=== PATIENT | female | born 1955 | race American Indian/Alaskan Native ===

== ENCOUNTER 2020-10-09 09:31 | Outpatient (CLI) | payer MEDICARE ==
--- NOTE | 2020-10-09 10:44 | Mammography Report ---
RIGHT DIGITAL DIAGNOSTIC MAMMOGRAM WITH CAD CONVENTIONAL, 10/09/2020 RIGHT LIMITED BREAST ULTRASOUND CLINICAL INFORMATION / INDICATION: DIFFUSE CYSTIC MASTOPATHY OF RT BREAST TECHNIQUE: Digital right mammographic imaging was performed. Limited ultrasound was performed. This e xamination was interpreted with the benefit of Computer-Aided Detection (CAD) analysis. COMPARISON: 04/24/2020 and 05/07/2020 from [place] FINDINGS: Breast Density: There are scattered areas of fibroglandular density. MAMMOGRAPHIC FINDINGS: There is a stable nodule in the 9:00 position of the right breast. Postsurgica l scar is noted on the right. There are scattered benign-appearing calcifications. ULTRASOUND FINDINGS: Targeted ultrasound evaluation was performed of the area of interest. There is a 9 x 4 x 7 mm solid nodule in the 9 to 10:00 position of the right breast. This is unchanged in siz e and appearance when compared to the prior ultrasound. The nodule is wider than tall. IMPRESSION: There is a stable solid nodule in the 9 to 10:00 position of the right breast. This is pr obably benign. Follow up recommendation: Follow-up mammogram and ultrasound in 6 months. Patient will be due for diaz ateral mammography at that time. BI-RADS Category 3: Probably Benign. Followup in 6 months. A "normal" or negative report should not discourage follow up or biopsy of a clinically significant f inding. A written summary of these findings will be mailed to the patient. The patient will be entered into a mammography reporting system which will generate a reminder letter for the patient's next appointmen t at the appropriate interval. According to the [employer], yearly mammograms are recommended starting at age 40 and continuing as long as a woman is in good health. Breast MRI is recommended for women with an lluvia roximately 20-25% or greater lifetime risk of breast cancer, including women with a strong family his tory of breast or ovarian cancer and women who have been treated for Hodgkin's disease. Signer Name: Chau Tian MD Signed: 10/09/2020 10:39 AM Workstation Name: [employer]
== END 2020-10-09 09:32 | disposition home or self-care (01) ==
LOC: SPVWC 09:31
PROVIDERS: ATTEND Surgery
DX: N63.11 Unspecified lump in the right breast, upper outer quadrant (principal); R92.8 Other abnormal and inconclusive findings on diagnostic imaging of breast

== ENCOUNTER 2021-04-30 08:04 | Outpatient (CLI) | payer MEDICARE ==
--- NOTE | 2021-04-30 09:46 | Mammography Report ---
BILATERAL DIAGNOSTIC MAMMOGRAM AND TARGETED RIGHT ULTRASOUND INDICATION: Follow-up evaluation of finding noted previously in the right breast. Patient due for johan ual bilateral mammogram. COMPARISON: 10/09/2020, 05/07/2020, 04/24/2020 FINDINGS: Breasts demonstrate scattered fibroglandular breast density. Stable right lateral breast ci rcumscribed oval low-density mass. No new suspicious findings within the left breast. CAD was utilize d. A targeted ultrasound focused in the right breast at the 9:30 position, 10 cm from the nipple, was pe rformed to evaluate the site of a previously noted finding. When accounting for differences in measur ement and technique, there is no significant change in a 7 x 9 x 5 mm circumscribed oval hypoechoic m ass. No interval detrimental change or new suspicious finding is identified. IMPRESSION: No significant change in probably benign lesion in the right breast at the 9:30 position. No new susp icious findings identified within either breast. A follow-up targeted ultrasound of the right breast is recommended in 6 months. BI-RADS Category 3: Probably Benign. A "normal" or negative report should not discourage follow up or biopsy of a clinically significant f inding. A written summary of these findings will be mailed to the patient. FURTHER INFORMATION: According to the [employer], yearly mammograms are recommend ed starting at age 40 and continuing as long as a woman is in good health. Breast MRI is recommended for women with an approximately 20-25% or greater lifetime risk of breast cancer, including women wi th a strong family history of breast or ovarian cancer and women who have been treated for Hodgkin's disease. Signer Name: Sam Neville MD Signed: 04/30/2021 9:42 AM Workstation Name: [id number]
== END 2021-04-30 08:05 | disposition home or self-care (01) ==
LOC: SPVWC 08:04
PROVIDERS: ATTEND Physician Assistant
DX: R92.8 Other abnormal and inconclusive findings on diagnostic imaging of breast (principal)
CPT/HCPCS: 77066